=== PATIENT | female | born 1960 | race Caucasian/White ===

== ENCOUNTER 2024-02-29 13:40 | Emergency (ER) | payer OTHER, SELFPAY ==
[2024-02-29 13:45] VITALS: BP 140/67; PULSE 65; TEMP 36.7; O2SAT 94; BMI 29.3
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
--- NOTE | 2024-02-29 13:48 | XR_ITS ---
[address] [address] Patient Name: MORRIS ENGLAND MRN: [id number] date: 1960 Sex: F Assigned Patient Location: ED.MAIN Current Patient Location: Accession/Order Number: [id number] Exam Date: 02/29/2024 14:30 Report Date: 02/29/2024 15:18 At the request of: HYUN ROJO Procedure: XR tibia fibula RT 2V EXAM: XR tibia fibula RT 2V HISTORY: Trauma COMPARISON: None. FINDINGS/IMPRESSION: 1. No acute fracture or dislocation. 2. Normal alignment of the right knee joint and right ankle joint. 3. No knee joint effusion. No ankle joint effusion. 4. Atherosclerotic calcification of the popliteal artery. 5. Subcutaneous soft tissue edema about the below-knee lower extremity. 6. Calcaneal Achilles enthesophyte. Electronically authenticated by: REID SHEA Date: 02/29/2024 15:18
== END 2024-02-29 15:18 | disposition home or self-care (01) ==
PROVIDERS: Emergency Provider Emergency Medicine Emergency Medical Services
DX: S80.11XA Contusion of right lower leg, initial encounter (principal); V49.59XA Passenger injured in collision with other motor vehicles in traffic accident, initial encounter; C32.9 Malignant neoplasm of larynx, unspecified
CPT/HCPCS: 73590; 99283